=== PATIENT | female | born 1985 | race African-American/Black ===

== ENCOUNTER 2023-12-20 04:50 | Emergency (ER) | payer MEDICAID, OTHER ==
[~2023-12-20] VITALS: Ht 154.9 cm; Wt 109.5 kg
[~2023-12-20 04:50] MED LIST: CIPRO; LEVSIN; PEPCID; VICODIN
[2023-12-20 06:01] VITALS: O2SAT 100
[2023-12-20] MEDS: KETOROLAC 60MG/2ML VIAL IM ONE (08:23)
[2023-12-20] MEDS ORDERED: NAPR-681 MT (09:21)
[2023-12-20 09:25] VITALS: BP 122/71; PULSE 86; RESP 17; TEMP 98
== END 2023-12-20 09:27 | disposition home or self-care (01) ==
LOC: ER 04:50
DX: M79.89 Other specified soft tissue disorders (principal); Z90.49 Acquired absence of other specified parts of digestive tract
CPT/HCPCS: 99285; 93971; 73610; 96372; J1885

== ENCOUNTER 2025-01-15 20:44 | Emergency (ER) | payer MEDICAID ==
[~2025-01-15] VITALS: Ht 154.9 cm; Wt 109.0 kg
[~2025-01-15 20:44] MED LIST changes: +NAPR-681 MT
[2025-01-15 20:49] VITALS: O2SAT 100
[2025-01-15 22:04] LABS: BASOPHILS % 0.4 % (0.0-2.0); EOSINOPHILS % 1.6 % (0.0-5.0); HEMATOCRIT. 37.3 % (36.0-48.0); HEMOGLOBIN. 12.3 g/dL (12.0-16.0); LYMPHOCYTES % 35.3 % (20.0-50.0); MEAN CORPUSCULAR HEMOGLOBIN 29.5 pg (28.0-32.0); MEAN CORPUSCULAR VOLUME 89.2 fL (81.0-99.0); MEAN PLATELET VOLUME 9.3 fl (7.4-10.4); MONOCYTES % 11.3 % (2.0-8.0); NEUTROPHILS % 51.4 % (40.0-76.0); PLATELET 217 x1000/uL (130-400); RED BLOOD CELL COUNT 4.18 mill/uL (4.2-5.4); RED CELL DISTRIBUTION WIDTH 13.5 % (11.6-14.6); WHITE BLOOD COUNT 4.9 x1000/uL (4.5-11.0)
[2025-01-15 22:09] LABS: CHLORIDE 106 mEq/L (98-107); POTASSIUM 3.3 mEq/L (3.5-5.1); SODIUM 140 mEq/L (136-145)
[2025-01-15 22:10] LABS: CALCIUM 8.6 mg/dL (8.7-10.4); CARBON DIOXIDE 26 mEq/L (21-32)
[2025-01-15 22:15] LABS: CREATININE 0.9 mg/dL (0.6-1.0); GLUCOSE 107 mg/dL (70-105); UREA NITROGEN BLOOD 14 mg/dL (9-23)
[2025-01-15 22:21] LABS: TROPONIN I HIGH SENSITIVITY < 4 ng/L (3.0-34)
[2025-01-16] MEDS: HYDROCODONE/ACETAMINOPHEN 10/325MG TABLET PO ONE (00:37)
[2025-01-16 00:40] LABS: TROPONIN I HIGH SENSITIVITY < 4 ng/L (3.0-34)
[2025-01-16] MEDS: POTASSIUM CHLORIDE 20MEQ TABLET SR PO SCH (00:52)
[2025-01-16 01:00] VITALS: BP 135/97; PULSE 69; RESP 19; TEMP 36.6; O2SAT 100
== END 2025-01-16 01:00 | disposition home or self-care (01) ==
LOC: ER 20:44
DX: R07.89 Other chest pain (principal); Z90.49 Acquired absence of other specified parts of digestive tract
CPT/HCPCS: 36415; 71045; 80048; 84484; 85025; 93005; 99285

== ENCOUNTER 2025-07-15 16:09 | Emergency (ER) | payer MEDICAID ==
[~2025-07-15] VITALS: Ht 154.9 cm; Wt 100.0 kg
[2025-07-15 16:17] VITALS: O2SAT 100
[2025-07-15 18:01] VITALS: BP 133/80; PULSE 95; RESP 17; TEMP 36.9; O2SAT 100
== END 2025-07-15 18:02 | disposition home or self-care (01) ==
LOC: ER 16:09
DX: M25.462 Effusion, left knee (principal); Z79.1 Long term (current) use of non-steroidal anti-inflammatories (NSAID); Z90.49 Acquired absence of other specified parts of digestive tract; Z79.899 Other long term (current) drug therapy
CPT/HCPCS: 73560; 99283